=== PATIENT | female | born 1940 | race African-American/Black ===

== ENCOUNTER 2024-10-15 16:24 | Emergency (ER) | payer MEDICARE ==
[~2024-10-15] VITALS: Ht 157.5 cm; Wt 64.9 kg
[~2024-10-15 16:24] MED LIST: ACETAMINOPHEN325 M1 PO; CEFDINIR300 MG PO; CYMBALTA20 MG PO; DICYCLOMINE HCL20 MG PO; EXELON1 EACH TD; FIBER GUMMIES2 GM PO; FOLIC ACID-VIT1 EACH PO; MIDODRINE HCL5 MG PO; NAMENDA10 MG PO; OMEPRAZOLE40 MG PO; ONDANSETRON ODT4 MG PO; QUESTRAN PACKET4 GM PO; SEROQUEL25 MG PO; TIZANIDINE HCL4 M1 PO; TOVIAZ8 MG PO; [UNRECOGNIZED DRUG - OTHER] PO
[2024-10-15 16:30] VITALS: PULSE 66; RESP 20; TEMP 97.9; O2SAT 100
[2024-10-15] MEDS: ACETAMINOPHEN 325 MG TAB PO ONE (17:31)
== END 2024-10-15 17:39 | disposition home or self-care (01) ==
LOC: FSED 16:28
DX: S63.695A Other sprain of left ring finger, initial encounter (principal); X50.1XXA Overexertion from prolonged static or awkward postures, initial encounter; Y92.89 Other specified places as the place of occurrence of the external cause; G30.9 Alzheimer's disease, unspecified; F02.80 Dementia in other diseases classified elsewhere, unspecified severity, without behavioral disturbance, psychotic disturbance, mood disturbance, and anxiety
CPT/HCPCS: 99284